=== PATIENT | female | born 1980 | race Caucasian/White ===

== ENCOUNTER 2020-11-28 08:38 | Outpatient (CLI) | payer BC, SELFPAY ==
--- NOTE | ~2020-11-28 | MM_ITS ---
EXAMINATION: MM screening kwame BI w placido HISTORY: Screening mammogram TECHNIQUE: Craniocaudal and mediolateral oblique 3-D tomosynthesis images were obtained and synthetic 2-D images were generated. CAD analysis was submitted and interpreted. COMPARISON: bilateral digital screening mammogram 09/16/2018 limited left breast ultrasound 02/07/2018 complete left breast ultrasound 02/07/2018 right screening and left diagnostic digital mammogram BREAST PARENCHYMAL COMPOSITION: The breasts are heterogeneously dense, which may obscure small masses . FINDINGS: Biopsy marker on the left; history of prior benign left breast biopsy. There is no evidence of suspicious mass, calcification, or architectural distortion to suggest malignancy in either breas t. There has been no suspicious interval change. IMPRESSION: 1. No mammographic evidence of malignancy. 2. Recommend routine screening mammography in one year. BI-RADS Category 1: Negative Reviewed, dictated and finalized at location A.
== END 2020-11-28 08:39 | disposition home or self-care (01) ==
LOC: ANHIMG 08:41
PROVIDERS: Visit Provider Obstetrics & Gynecology Gynecology
DX: Z12.31 Encounter for screening mammogram for malignant neoplasm of breast (principal)
CPT/HCPCS: 77063; 77067

== ENCOUNTER 2022-08-21 16:08 | Outpatient (CLI) | payer BC, SELFPAY ==
--- NOTE | ~2022-08-21 | MM_ITS ---
EXAMINATION: MM screening kwame BI w placido HISTORY: Screening TECHNIQUE: Craniocaudal and mediolateral oblique 3-D tomosynthesis images were obtained and synthetic 2-D images were generated. CAD analysis was submitted and interpreted. COMPARISON: Comparison to multiple prior studies sequentially, with oldest reviewed study dated 02/2014. BREAST PARENCHYMAL COMPOSITION: The breasts are heterogeneously dense, which may obscure small masses . FINDINGS: There is no evidence of suspicious mass, calcification, or architectural distortion to sugg est malignancy in either breast. There has been no suspicious interval change. IMPRESSION: 1. No mammographic evidence of malignancy. 2. Recommend routine screening mammography in one year. BI-RADS Category 1: Negative Reviewed, dictated and finalized at location A. MACHINE OPERATOR
== END 2022-08-21 16:09 | disposition home or self-care (01) ==
PROVIDERS: Visit Provider Obstetrics & Gynecology Gynecology
DX: Z12.31 Encounter for screening mammogram for malignant neoplasm of breast (principal)
CPT/HCPCS: 77063; 77067

== ENCOUNTER 2023-09-02 13:55 | Outpatient (CLI) | payer BC, SELFPAY ==
--- NOTE | ~2023-09-02 | MM_ITS ---
EXAMINATION: MM screening kwame BI w placido HISTORY: Screening TECHNIQUE: Craniocaudal and mediolateral oblique 3-D tomosynthesis images were obtained and synthetic 2-D images were generated. CAD analysis was submitted and interpreted. COMPARISON: Comparison to multiple prior studies sequentially, with oldest reviewed study dated 02/2014. BREAST PARENCHYMAL COMPOSITION: Dense: The breasts are heterogeneously dense, which may obscure small masses FINDINGS: There is no evidence of suspicious mass, calcification, or architectural distortion to sugg est malignancy in either breast. There has been no suspicious interval change. IMPRESSION: 1. No mammographic evidence of malignancy. 2. Recommend routine screening mammography in one year. BI-RADS Category 1: Negative Reviewed, dictated and finalized at location A. DING ARCHITECT
== END 2023-09-02 13:56 | disposition home or self-care (01) ==
LOC: ANHIMG 13:59
PROVIDERS: PCP Family Medicine; Visit Provider Obstetrics & Gynecology Gynecology
DX: Z12.31 Encounter for screening mammogram for malignant neoplasm of breast (principal)
CPT/HCPCS: 77063; 77067

== ENCOUNTER 2024-11-19 12:13 | Outpatient (CLI) | payer BC, SELFPAY ==
--- NOTE | ~2024-11-19 | MM_ITS ---
EXAMINATION: MM screening kwame BI w placido HISTORY: Screening TECHNIQUE: Craniocaudal and mediolateral oblique 3-D tomosynthesis images were obtained and synthetic 2-D images were generated. CAD analysis was submitted and interpreted. COMPARISON: Comparison to multiple prior studies sequentially, with oldest reviewed study dated 09/2017. BREAST PARENCHYMAL COMPOSITION: Not dense: There are scattered areas of fibroglandular density. FINDINGS: There is no evidence of suspicious mass, calcification, or architectural distortion to sugg est malignancy in either breast. There has been no suspicious interval change. IMPRESSION: 1. No mammographic evidence of malignancy. 2. Recommend routine screening mammography in one year. BI-RADS Category 1: Negative Reviewed, dictated and finalized at location A.
--- OUTSIDE RECORDS SUMMARY | 2024-11-19 12:17 | XMS_ITS | Clinical Summary ---
Author Organization [facility] Address [address] [place] [address] Care Team Providers Care Flight Operations Dispatch Clerk Name Role Phone Michael Curran MD Primary Care Provider [phone] Source Comments [facility],non-owned Affiliates and Associated Physician Practices is amultiple site organization consisting of ambulatory clinics and hospital sitesin [place], [place], [place] and [place]. This disclosure is being madepursuant to the Care Everywhere program and may not contain all information available regarding this patient. Last updated 18.[facility] Allergies No known active allergies Medications * Be aware that medications may not be up to date on this document. Alwaysverify current medications with the patient. 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 Gender Identity Not on file Sexual Orientation Not on file Last Filed Vital Signs Vital Sign Reading Time Taken Comments Blood Pressure - - Pulse - - Temperature - - Respiratory Rate - - Oxygen Saturation - - Inhaled Oxygen Concentration - - Weight 75.8 kg (167 lb) 04/01/2014 11:09 AM CDT Height - - Body Mass Index - - Plan of Treatment Health Maintenance Due Date Last Done Comments COLOGUACHARLENE (AGES 45-75) - COL ON CA SCREENING 1980 COLON MONITORING 1979 COLONOSCOPY - COLON CA SCREENING 1979 CT COLONOGRAPHY - COLON CA SCREENING 1979 Colorectal Cancer Screening 1979 FIT - COLON CA SCREENING 1979 FLEX SIG - COLON CA SCREENING 1979 LIPID TESTING 1980 MAMMOGRAM 1979 HEPATITIS C SCREENING 08/26/1997 DTAP/TDAP/TD VACCINES (1 - Tdap) 1998 HEPATITIS B VACCINE (1 of 3 - 19+ 3-dose series) 1998 COVID-19 VACCINE (1 - 2023-2 5 season) 2024 DEPRESSION SCREENING 07/08/2024 INFLUENZA VACCINE (Season Ended) 2025 ZOSTER VACCINE (1 of 2) 2029 HIV SCREENING Completed 03/28/2012 HIB VACCINE Aged Out No longer eligi ble based on patient's age to complete this topic HPV VACCINE Aged Out No longer eligi ble based on patient's age to complete this topic MENINGOCOCCAL (Group B) VACC INE SHARED DECISION-MAKING Aged Out No longer eligibl e based on patient's age to complete this topic MENINGOCOCCAL GROUPS A/C/Y/W VACCINE Aged Out No longer eligible b ased on patient's age to complete this topic PNEUMOCOCCAL VACCINE Aged Out No long er eligible based on patient's age to complete this topic Procedures Procedure Name Priority Date/Time Associated Diagnosis Comments HIV-1 HIV-2 ANTIBODY Today 03/28/2012 1:44 PM CDT from Last 3 Months or Most Recently Relevant to Health Maintenance Results * HIV-1 HIV-2 ANTIBODY (03/28/2012 1:44 PM CDT) HIV-1/HIV-2 Nonreactive Nonreactive [facility] BLOOD SPECIMEN / Unknown 03/28/2012 1:44 PM CDT us Jazmine Lara MD LAB - CHEMISTRY ORDERABLES Final Result [facility] [address] [place] [address] from Last 3 Months or Most Recently Relevant to Health Maintenance Insurance ANTH Care Teams Flight Operations Dispatch Clerk Relationship Specialty Start Date End Date Michael Curran MD PCP - General 06/23/12
--- OUTSIDE RECORDS SUMMARY | 2024-11-19 12:17 | XMS_ITS | Clinical Summary ---
Author Organization [facility] Address [address] [place] [address] Care Team Providers Care Hand Coremaker Name Role Phone Michael Curran MD Primary Care Provider [phone] Medications OTEZLA 30 mg Tablet 9 09/09/2018 Active ergocalciferol (VITAMIN D2) 50,000 unit capsule 3 09/11/2018 Active Active Problems Problem Noted Date Diagnosed Date Left breast mass 09/23/2018 Family History Medical History Relation Name Comments Melanoma Paternal Grandmother Relation Name Status Comments Paternal Grandmother Social History Tobacco Use Types Packs/Day Years Used Date Smoking Tobacco: Never Smokeless Tobacco: Never Comments No Sex and Gender Information Value Date Recorded Sex Assigned at Not on file Legal Sex Female 12:06 PM CDT Gender Identity Not on file Sexual Orientation Not on file Last Filed Vital Signs Vital Sign Reading Time Taken Comments Blood Pressure 118/78 09/30/2018 11:49 AM CDT Pulse - - Temperature - - Respiratory Rate - - Oxygen Saturation - - Inhaled Oxygen Concentration - - Weight 71.7 kg (158 lb) 09/30/2018 11:49 AM CDT Height 162.6 cm (5' 4 ) 09/30/2018 11:49 AM CDT Body Mass Index 27.12 09/30/2018 11:49 AM CDT Plan of Treatment Health Maintenance Due Date Last Done Comments DTAP/TDAP/TD VACCINES (1 - Tdap) 1998 HEPATITIS B VACCINES (1 of 3 - 19+ 3-dose series) 1998 HPV/Cotest (21-29) 2000 CERVICAL CANCER SCREENING 2009 HPV/Cotest (30-65) 2009 PAP SMEAR 2009 BREAST CANCER SCREENING 2019 02/08/20 18, 03/26/2016, 02/12/2014 INFLUENZA VACCINE (#1) 2024 COLORECTAL SCREENING 2024 Colorectal Cancer Screening 2024 FIT-DNA Q 3 years 2024 FIT/FOBT Q 1 year 2024 Flex Sig/CT Colonography Q 5 years 2024 HPV VACCINES Aged Out No longer eligi ble based on patient's age to complete this topic Procedures Procedure Name Priority Date/Time Associated Diagnosis Comments MAMMO SCREEN BILAT W OR WO CAD Routine 02/07/2018 from Last 3 Months or Most Recently Relevant to Health Maintenance Results * (ABNORMAL) MAMMO SCREEN BILAT W OR WO CAD (02/07/2018) Anatomical Region Laterality Modality Breast Bilateral Mammography us Jazmine Lara MD MAMMO ORDERABLES Edited R esult - Final from Last 3 Months or Most Recently Relevant to Health Maintenance Insurance BCBS BLUE ACCESS/TRUE BLUE PPO Care Teams Hand Coremaker Relationship Specialty Start Date End Date Michael Curran MD [address] [address] PCP - General Family Practice 3/26/19
--- OUTSIDE RECORDS SUMMARY | 2024-11-19 12:17 | XMS_ITS | Patient Health Record ---
Author Organization [facility] [employer] [facility] Address [address] [facility] [address] [place], [place] [address] Care Team Providers Care Supervisor Finishing Department Name Role Phone ENRIQUE DE SANTIAGO MD Primary Care Provider Unavaila Michael Johnson Unavailable [phone] ERICK FAUSTIN MD Unavailable Unavailable ALLERGIES Allergen (clinical drug ingredient) Drug/Non Drug Allergy documented on EMR Reaction Allergy Type Onset Date Status erythromycin Unknown Drug Allergy Acti ve REASON FOR REFERRAL No Information MEDICATIONS Medication SIG (Take, Route, Frequency, Duration) Notes Start Date End Date Status Vitamin D2 (obsolete) 50,000 intl units 1 cap(s) orally once a week Active Otezla Active folic acid 1 mg 1 tab(s) orally once a day for 30 day(s) 11/22/2016 Not-Taking methotrexate 2.5 mg 6 tab(s orally once a week for 30 day(s) 11/22/2016 Not-Taking Belviq 10 mg 1 tab(s) orally 2 ti mes a day Active SOCIAL HISTORY Tobacco Use: Social History Observation Description Date Details (start date - stop date) Former Smoker NA - NA Sex Assigned At : Social History Observation Description Sex Assigned At Unknown Tobacco Use: Question Answer Notes Smoking Status former smoker PROBLEMS Problem Type ICD Code Onset Dates Problem Status W/U Status Risk SNOMED Code Notes Problem Former smoker (Z87.891) Active confirmed 4612072 Problem Psoriasis (L40.9) Active confirmed 9014 002 Problem Polyarthralgia (M25.50) Active confirmed 00717258 Problem Myalgia (M79.1) Active confirmed 878345 01 Problem Psoriatic arthritis (L40.50) Active confirmed 207354931 Problem Other retirement (current) drug therapy (Z79.899) Active confirmed 126727364 PLAN OF TREATMENT Pending Test Test Name Order Date X ray : Hand, left 11/22/2016 X ray : Hand, right 11/22/2016 AST (SGOT) 12/28/2016 Creatinine, Serum 12/28/2016 ALT (SGPT) 12/28/2016 CBC With Differential/Platelet 7 Sed Rate - Westergren 12/28/2016 C-Reactive Protein, Quant 12/28/2016 X ray : SI joints- outside order 017 lab slip given 12/28/2016 Insurance Providers Payer Name Payer Address Payer Phone Subscriber Number Group Number Insured Name Patient Relationship to Insured Coverage Start Date Coverage End Date Daniela Krishnan [address] [address] [place] [address] [phone] [id number] Lizbeth Mtz Self - patient is the insured 7 MEDICAL (GENERAL) HISTORY Medical History History ICD Code ringing in ears Surgical History Surgery Date(Month/Year) C section 01/14/13
== END 2024-11-19 12:14 | disposition home or self-care (01) ==
LOC: ANHIMG 12:15
PROVIDERS: PCP Family Medicine; Visit Provider Obstetrics & Gynecology Gynecology
DX: Z12.31 Encounter for screening mammogram for malignant neoplasm of breast (principal)
CPT/HCPCS: 77063; 77067

== ENCOUNTER 2025-03-22 03:09 | Day surgery (SDC) | payer BC, SELFPAY ==
--- NOTE | 2025-03-15 14:49 | SUR.PREOP ---
Report to the Outpatient Waiting Room, entrance under the green pavilion located off [facility], at time _1245_ on date _03/22/25_. Planned Procedure Time: _1445_.? Time changes happen often and if your time is changed the preop area will call you the afternoon before. - You and your visitor will be asked to self-screen and do not enter if you have any COVID symptoms. Please call surgeon if you need to reschedule. - A mask is optional within the hospital at this time. Patients may have clear liquids (water, carbonated beverages, clear teas, apple juice) until 3 hours prior to surgery with a maximum of 20 ounces. - No food from midnight until time of surgery and no smoking, or chewing tobacco (or any form of nicotine). No chewing gum, candy or mints. Take only the following medications with a SIP of water on the morning of surgery: _ESCITALOPRAM, TXA_ DO NOT STOP ANY OF YOUR OTHER PRESCRIPTION MEDICATIONS PRIOR TO SURGERY EXCEPT THE FOLLOWING Hold all vitamins and supplements for 3 days per anesthesiologist. Medications to discontinue per physician _NA_ Date to take last dose_NA_ Please no make-up, nail yakut, hairspray, perfume, deodorant, or body powder the day of surgery.? No jewelry (including any body piercings) or valuables the day of surgery, leave them at home.? Please take a shower or bath the night before, or the morning of, surgery with an antibacterial soap.? Wear comfortable, loose fitting clothing. - Jewelry must be removed prior to entering the operating room.? Rings and piercings that are not removed may be cut off. - The hospital will not accept responsibility for valuables.? - Please leave all valuables, including medications, at home the day of surgery. If you are going home after surgery, a licensed tank wagon driver must drive you home.? - NO public transportation without another adult if you receive anesthesia. - We recommend that an adult stay with you for 24 hours following discharge. - We also recommend that you do not drive, make important decision, drink alcoholic beverages, or take any drugs that were not prescribed by your health care provider for at least 24 hours after your discharge time. Follow any additional instructions given to you from your surgeon. Telephone instructions given to _KARRIE_and asked if any additional questions and then verbalized understanding. Patient advised to call surgeon office or pre surgery nurse liaison [phone] if any additional questions.
[2025-03-15 14:59] VITALS: BMI 28.0
--- OUTSIDE RECORDS SUMMARY | 2025-03-22 03:12 | XMS_ITS | Clinical Summary ---
Author Organization [facility] Address [address] [place] [address] Care Team Providers Care Roll Cutter Name Role Phone Michael Curran MD Primary Care Provider [phone] Medications OTEZLA 30 mg Tablet 9 09/09/2018 [...] 11:49 AM CDT Height 162.6 cm (5' 4) 09/30/2018 11:49 AM CDT Body Mass Index 27.12 09/30/2018 11:49 AM CDT Plan of Treatment Health Maintenance Due Date Last Done Comments DTAP/TDAP/TD VACCINES (1 - Tdap) 1998 HEPATITIS B VACCINES (1 of 3 - 19+ 3-dose series) 1998 HPV/Cotest (21-29) 2000 HPV VACCINES (1 - 3-dose SCDM series) 2006 CERVICAL CANCER SCREENING 2009 HPV/Cotest (30-65) 2009 PAP SMEAR 2009 BREAST CANCER SCREENING 2019 02/08/20 18, 03/26/2016, 02/12/2014 COLORECTAL SCREENING 2024 Colorectal Cancer Screening 2024 FIT-DNA Q 3 years 2024 FIT/FOBT Q 1 year 2024 Flex Sig/CT Colonography Q 5 years 2024 INFLUENZA VACCINE (#1) 2025 Procedures Procedure Name Priority Date/Time Associated Diagnosis [...] BCBS BLUE ACCESS/TRUE BLUE PPO Care Teams Roll Cutter Relationship Specialty Start Date End Date Michael Curran MD [address] [address] PCP - General Family Practice 09/30/18
--- NOTE | 2025-03-22 07:52 | P.HP_ITS ---
History of Present Illness History of Present Illness Consent: Risks, benefits, and alternatives have been discussed and questions answered. Patient agrees to proceed with procedure. Chief complaint: menorrhagia Narrative: Lizbeth Werner is a 44 year old female with heavy and prolonged bleeding. It was recommended to undergo D&C hysteroscopy. Risks of infection, bleeding, perforation, and possible pathology are reviewed. Patient voices understanding and agrees to proceed. Review of Systems Review of Systems: not repeated day of surgery; patient states no changes in status [facility] Past Medical History Medical History (Updated 03/22/25 @ 07:55 by Jazmine Lara MD) Psoriatic arthritis Surgical History Surgical History (Updated 03/22/25 @ 07:54 by Jazmine Lara MD) History of breast biopsy Fibroadenoma 2013 History of X3 Social History Social History Smoking status: Never smoker Second hand tobacco smoke exposure: No Alcohol intake: current Alcohol use details: SOCIALLY Substance use: never Substance use type: does not use Living arrangements: with family Additional living arrangements comments: FAMILY Spiritual care concerns: No Meds Home Medications and Allergies Home Medications ?Medication ?Instructions ?Recorded ?Confirmed ?Type escitalopram oxalate 5 mg tablet 5 mg PO DAILY PRN anx iety 03/15/25 03/15/25 History iron bisglycinate,polysaccharide 1 cap PO DAILY 03/15/25 History complex 60 mg capsule risankizumab-rzaa 150 mg/mL 150 mg subcut .every 12 we eks 03/15/25 03/15/25 History subcutaneous pen injector (Russellizi) ruxolitinib 1.5 % topical cream 1 applic topical DAILY PRN 03/15/25 03/15/25 History (Opzelura) psoriatic arthritis tranexamic acid 650 mg tablet 1,300 mg PO TID 03/15/25 03/15/25 History Allergies Allergy/AdvReac Type Severity Reaction Status Date / Time erythromycin base AdvReac Mild Nausea and Verified 03/15/25 14:34 Vomiting Exam Const: General: healthy appearing and alert Orientation/consciousness: patient oriented x3 Resp: Effort & Inspection: normal respiratory effort : External Female Exam: normal external appearance Speculum Exam - Vagina: normal appearance of the vagina and normal vaginal discharge Speculum Exam - Cervix: normal appearance of the cervix Bimanual exam- vagina & uterus: uterine size normal and consistency normal Bimanual Exam- Adnexa, other: normal adnexae and No adnexal tenderness Neuro: General: patient oriented x3 Assessment and Plan Assessment and plan (1) Menorrhagia: Code(s): N92.0 - Excessive and frequent menstruation with regular cycle Status: Acute Assessment and Plan: Plan to proceed with D&C hysteroscopy
--- NOTE | 2025-03-22 07:52 | WPDHPUPDATE1 ---
History and Physical Update Update Date/Time: 03/22/25 07:52 History and Physical has been reviewed, including an updated exam of the patient. There are NO changes in the patient's condition. Risks, benefits, and alternatives have been discussed and questions answered. Patient agrees to proceed with procedure.
--- NOTE | 2025-03-22 13:14 | WPDANESEPPF ---
Anes - Initial Pre Proc Eval Procedure: Operation Date: 03/22/25 14:45 Proposed Procedures p Hysteroscopy Dilation and Curettage - Jazmine Lara MD Date/Time: 03/22/25 13:14 Surgeon: Jazmine Lara MD Pre Op Diagnosis: menorrhagia Patient Data Age: 44 Gender: F Height: 1.65 m Weight: 76.36 kg Allergies Allergy/AdvReac Type Severity Reaction Status Date / Time erythromycin base AdvReac Mild Nausea and Verified 03/15/25 14:34 Vomiting Home Medications ?Medication ?Instructions ?Recorded ?Confirmed ?Type escitalopram oxalate 5 mg tablet 5 mg PO DAILY PRN anxiety 03/15/25 03/15/25 History iron bisglycinate,polysaccharide 1 cap PO DAILY 03/15/25 03/15/25 History complex 60 mg capsule risankizumab-rzaa 150 mg/mL 150 mg subcut .every 12 weeks 03/15/25 03/15/25 History subcutaneous pen injector (Beatrizyrizi) ruxolitinib 1.5 % topical cream 1 applic topical DAILY PRN 03/15/25 03/15/25 History (Opzelura) psoriatic arthritis tranexamic acid 650 mg tablet 1,300 mg PO TID 03/15/25 03/15/25 History Patient hx anesthesia problems: none Family hx anesthesia problems: none Results Review: All pre-operative results and documents have been reviewed as part of the pre-operative evaluation. [facility] Past Medical History Medical History Psoriatic arthritis Surgical History Surgical History History of breast biopsy Fibroadenoma 2013 History of X3 Social History Social History Smoking status: Never smoker Second hand tobacco smoke exposure: No Alcohol intake: current Alcohol use details: SOCIALLY Substance use: never Substance use type: does not use Living arrangements: with family Additional living arrangements comments: FAMILY Spiritual care concerns: No Anes - Eval Final PreProcedure Day of Procedure 03/22/25 13:14 Patient weight: overweight Heart: regular rate and rhythm Lungs: clear to auscultation Airway: Mallampati scale class II Neurological: alert and oriented Last oral intake: >/= 8 hours ASA classification: II Emergent: no Anesthetic plan: proceed Anesthesia type and monitoring: general GIVS and standard monitoring Results Review: All pre-operative results and documents have been reviewed as part of the pre-operative evaluation. Informed Consent: The patient's anesthetic plan and its attendant risks and benefits were discussed with the patient/family/POA. Questions were solicited and answers provided to the satisfaction of the patient/family/POA.
[2025-03-22] MEDS: ACETAMINOPHEN 500 MG TABLET 1000 MG PO (13:15)
[2025-03-22] MEDS: LACTATED RINGERS 1,000 ML 30 ML IV CONT (13:15)
[2025-03-22 13:56] VITALS: BP 126/67; PULSE 83; TEMP 36.6; O2SAT 100; BMI 29.9
[2025-03-22 14:03] LABS: BEDSIDEPREGUCG Negative (Negative)
[2025-03-22] MEDS: KETOROLAC 30 MG/ML VIAL (*BKC) IV PUSH (14:57)
--- NOTE | 2025-03-22 15:00 | S_PTH ---
PATIENT: Lizbeth Werner LOC: [facility] U#:[id number] AGE/SX: 44/F ROOM: RE03/22/[address]: Jazmine Lara MD : 1980 BED: DIS: 03/22/2025 SPEC #: [id number] RECD: 03/23/25 08:35 STATUS: IKRILL REQ #: [id number] MUNDO: 03/22/25 15:[address]: Jazmine Lara DEPT: [facility] Surgical RECD BY: Sally Crane MLT, ([facility]) ENTERED: 03/23/25 08:36 SP TYPE: Surgical OTHR DR: Jerry BenavidesMD Tissues: A - Endometrial Curettings Procedures: Hematoxylin and Eosin Stain Gross and Microscopic Level 4
[2025-03-22] MEDS: FERRIC SUBSULFATE 8 ML SOLUTION WITH APPLICATOR TOPICAL (15:02)
--- NOTE | 2025-03-22 15:07 | W.PM.PROC2 ---
Procedure Note - Detailed Date of Procedure 03/22/25 Pre-op Diagnosis menorrhagia Post-op Diagnosis Same Procedure Performed D&C hysteroscopy Surgeon Jazmine Lara MD Anesthesia MAC Findings Uterus sounds to 12cm and appears grossly normal. Cervix stenotic. Description of Procedure The patient was taken to the operating room and placed under anesthesia in the dorsal lithotomy position. She was prepped and draped in the usual sterile fashion. The bivalve speculum was placed in the vagina and the cervix was grasped on the anterior lip with a tenaculum. The uterus is sounded to 12cm and noted to be anteverted. The hysteroscope was placed and with no abnormalities noted it is removed. The OO sharp curette was unable to enter the cavity. Cervix was serially dilated to a 6 Hegar. The curette was then able to pass and the endometrium curetted until a good uterine cry was noted in all areas. All instruments were then removed. Monsel's was required for the tenaculum site for hemostasis. The sponge, needle, and instrument counts are correct per the OR staff. The patient was awakened from anesthesia and taken to recovery in stable condition. Estimated Blood Loss 5 Drains No Packing No Pathology Yes (Endometrial curettings) Complications No immediate complications Condition Stable Disposition PACU
[2025-03-22 15:10] VITALS: BP 121/70; PULSE 79; RESP 14; O2SAT 100
[2025-03-22 15:30] VITALS: BP 124/65; PULSE 64; RESP 16; O2SAT 100
[2025-03-22] MEDS: oxyCODONE HCL (*CRX) 5 MG TAB IR PO (15:43)
[2025-03-22 16:00] VITALS: BP 130/67; PULSE 70; RESP 16
[2025-03-22 16:09] VITALS: BP 127/74; PULSE 72; RESP 16
== END 2025-03-22 16:18 ==
PROVIDERS: Anesthesiology; PCP Family Medicine; Visit Provider Obstetrics & Gynecology Gynecology
PROC: 0U5B8ZZ Destruction of Endometrium, Via Natural or Artificial Opening Endoscopic (ICD-10-PCS; CPT 58563; principal; 2025-03-22 14:45)
DX: N88.2 Stricture and stenosis of cervix uteri (principal); L40.50 Arthropathic psoriasis, unspecified; Z79.85 Long-term (current) use of injectable non-insulin antidiabetic drugs; Z98.890 Other specified postprocedural states
CPT/HCPCS: 58558; 88305; A9270; J1100; J1885; J2003; J2250; J2405; J2704; J3010; J7120